=== PATIENT | male | born 1955 | race Asian ===

== ENCOUNTER 2017-04-11 17:25 | Outpatient (CLI) | payer OTHER | END 2017-04-11 17:29 | disposition short-term general hospital (02) | LOC: AMB 17:25 | DX: R07.89 Other chest pain (principal); K92.0 Hematemesis; F10.129 Alcohol abuse with intoxication, unspecified | CPT/HCPCS: A0425; A0427 ==

== ENCOUNTER 2017-04-11 17:38 | Emergency (ER) | payer OTHER ==
[~2017-04-11] VITALS: Ht 167.6 cm; Wt 73.9 kg
[2017-04-11 19:37] LABS: PLATELET COUNT 299 K/uL (142-355)
[2017-04-11 19:49] LABS: SODIUM 132 mmol/L (136-145)
[2017-04-11 20:57] VITALS: BP 118/74; TEMP 98.7
== END 2017-04-11 21:00 | disposition home or self-care (01) ==
LOC: ED 17:38
DX: F10.10 Alcohol abuse, uncomplicated (principal); R18.8 Other ascites
CPT/HCPCS: 36415; 80053; 80307; 80320; 81000; 84484; 85027; 93005; 96360; 96361; 96375; 99284; G0479; J1885

== ENCOUNTER 2017-10-08 16:51 | Observation (INO) | payer OTHER ==
[~2017-10-08] VITALS: Ht 167.6 cm; Wt 79.0 kg
[2017-10-08] MEDS ORDERED: TRIA37.541 PO (16:55)
[2017-10-08] MEDS ORDERED: PANTOPRAZOLE 40MG TA PO (16:56)
[2017-10-08 16:59] VITALS: BP 127/93; TEMP 98.8
[2017-10-08 17:36] LABS: PLATELET COUNT 205 K/uL (142-355)
[2017-10-08 17:41] LABS: POTASSIUM 3.7 mmol/L (3.6-5.2)
[2017-10-08 20:23] VITALS: BP 140/84; TEMP 97.9; Ht 167.6 cm; Wt 79.0 kg
[2017-10-08 20:26] LABS: PARTIAL THROMBOPLASTIN TIME 25.3 SECONDS (24.5-33.6)
[2017-10-09] VITALS: BP 103/50; TEMP 98.2
[2017-10-09 04:00] VITALS: BP 132/60; TEMP 98.5
[2017-10-09 08:00] VITALS: BP 108/67; TEMP 98.9
[2017-10-09 12:00] VITALS: BP 129/67; TEMP 98.6
== END 2017-10-09 14:40 | disposition home or self-care (01) ==
LOC: ED 16:51 → MED/SURG 19:00
DX: R07.89 Other chest pain (principal); F10.10 Alcohol abuse, uncomplicated
CPT/HCPCS: 36415; 80053; 80307; 80320; 81000; 82550; 82553; 84484; 85027; 85610; 85730; 93005; 94760; 99220; 99283; G0378; J1650